=== PATIENT | male | born 1960 | race Caucasian/White ===

== ENCOUNTER 2020-09-15 12:50 | Emergency (ER) | payer OTHER ==
[~2020-09-15] VITALS: Ht 177.8 cm; Wt 72.6 kg
--- NOTE | 2020-09-15 12:59 | Emergency Room Report ---
History of Present Illness General Chief Complaint: Abdominal Pain Source: EMS (Rodrick Garcia MD) Present Illness HPI Disclaimer: Please note that this report is being documented using [employer] technology. This can lead to erroneous entry secondary to incorrect interpretat ion by the dictating instrument. HPI: 60-year-old male history of hypertension, hyperlipidemia, smoker presents for evaluation of chest and abdominal discomfort. Symptoms began 30 minutes ago the patient was riding the bus. He noted a sharp and then cramping pain in the epigastrium that somewhat radiated to the chest. He reported nausea, feeling flushed, diaphoretic and lightheaded. Lasted approximately 15 minutes and resolved. He still feels a cramping in his epigastrium but does not radiate. Denies recent alcohol use. Patient notes a long history of GI discomfort and states every few years he goes to the hospital for "something like this." He has had EGDs, colonoscopies abdominal MRIs all of which have been unremarkable. He had a cardiac echo 2 years ago which was reportedly normal. Has not had a stress test. Currently denies chest pain, shortness of breath, fatigue, pa lpitations, URI symptoms, cough, fever, chills, diarrhea. Nausea has resolved. No vomiting. Patient is currently involved in a COVID-19 experimental trial at the [facility] where he gets most of his care. He has notified the study liters about his hospital visit. 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 EOMI. Cardiovascular: RRR. S1 and S2 normal. No murmur appreciated Resp: Normal work of breathing. No cough, wheezing or crackles appreciated Abdomen: Abdomen is soft, nondistended. Tenderness in the epigastrium. No significant tenderness in the left or right upper quadrant. Negative Taylor's. No tenderness in the lower quadrants. No rebound, no guarding, no peritoneal signs. Skin: Intact. No abrasions, laceration or rash over the exposed skin MSK: Normal tone and bulk. Moving all extremities. No obvious deformity. Neuro: Awake and alert. Mentating appropriately. (Rodrick Garcia MD) Medical Decision Making Diagnostic Impression: Primary Impression: Epigastric pain Additional Impression: Nonspecific chest pain ER Course Well-appearing 60-year-old male presents for evaluation of abdominal and chest discomfort. Differential includes was not limited to angina, palpitations, arrhythmia, GERD, ACS, gastritis, gastroenteritis, pancreatitis, cholecystitis, ulcer among others. EKG is nonischemic. No infiltrates on chest x-ray. Patient feels better after receiving a GI cocktail. (Rodrick Garcia MD) ER Course 60-year-old male here with epigastric abdominal pain. Patient was signed out to me by previous physician. He remained hemodynamically stable and neurovascularly intact in the emergency department. He remained pain-free after receiving a GI cocktail. Troponin was negative. EKG was unremarkable. He was told to come back to the emergency department with worsening symptoms. Dis charged in good condition. EKG: NSR, no ischemia, intervals WNL. No ectopy. Rightward axis. Rate 61 bpm Rhythm strip: patient monitored for arrhythmias - no malignant dysrhythmias, runs of PVCs, nor pauses noted (Jay Temple M.D.) EKG Diagnostic Results Troponin ordered: Yes When was troponin ordered?: Sep 15, 2020 EKG Time: 13:58 Rate: normal Rhythm: NSR ST Segments: no acute changes Other Impression Sinus rhythm, borderline rightward axis, no ST segment changes. Normal intervals (Rodrick Garcia MD) Rhythm Strip Diag. Results Rhythm Strip Time: 13:58 EP Interpretation: yes Rate: 60s Rhythm: NSR, no PVC's, no ectopy (Rodrick Garcia MD) Chest X-Ray Diagnostic Results Chest X-Ray Diagnostic Results : Chest X-Ray Ordered: Yes # of Views/Limited/Complete: 1 View Indication: Chest Pain Interpretation: no consolidation, no effusion, no pneumothorax, no acute cardiopulmonary disease Impression: No acute disease Electronically Signed by: Electronically signed by Dr. Rodrick Garcia MD (Rodrick Garcia MD) Last Vital Signs Date Time Temp Pulse Resp B/P (MAP) Pulse Ox O2 Delivery O2 Flow Rate FiO2 09/15/20 12:47 97.9 68 19 136/55 (82) 98 Room Air (Rodrick Garcia MD) Disposition: HOME, SELF-CARE Condition: Stable Scripts Famotidine* (Pepcid 20mg tablet*) 20 Mg Tablet 20 MG ORAL DAILY for Gerd, #30 TAB 0 Refills Prov: Jay Temple M.D. 09/15/20 Rodrick Garcia MD Sep 15, 2020 12:59 Jay Temple M.D. Sep 15, 2020 14:52
[2020-09-15] MEDS ORDERED: Lidocaine 2% Visc 15ml soln ORAL ONE (13:00)
[2020-09-15] MEDS ORDERED: Mylanta II UD 30ml ORAL ONE (13:00)
[2020-09-15] MEDS ORDERED: Dicyclomine HCl 10mg/5ml oral soln ORAL ONE (13:00)
[2020-09-15 13:05] VITALS: BP 136/55
[2020-09-15 13:43] LABS: BASOPHILS % (AUTO) 1.2 % (0.0-2.0); EOSINOPHILS % (AUTO) 4.1 % (0.0-3.0); HEMATOCRIT 50.3 % (42.0-52.0); HEMOGLOBIN 16.4 G/DL (14.2-18.0); MEAN CORPUSCULAR VOLUME 100 FL (80-99); MONOCYTES % (AUTO) 6.3 % (1.0-10.0); NEUTROPHILS % (AUTO) 75.6 % (45.0-75.0); PLATELET COUNT 221 K/UL (150-450); RED BLOOD COUNT 5.01 M/UL (4.70-6.10); RED CELL DISTRIBUTION WIDTH 12.5 % (11.6-14.8); WHITE BLOOD COUNT 10.8 K/UL (4.8-10.8)
--- NOTE | 2020-09-15 13:45 | NUR ---
ED Nurse Note: Patient was BIBA RA 861 d/t epigastric pain onset 30 mins ago accompanied by n/v, denies diarrhea. Patient presented calm and cooperative stated pain 2/10, AAO x4, VSS at this time.
[2020-09-15 14:18] LABS: CALCIUM 9.4 MG/DL (8.5-10.1); CREATININE 1.4 MG/DL (0.55-1.30); POTASSIUM 4.9 MMOL/L (3.5-5.1)
[2020-09-15 14:28] LABS: ALBUMIN/GLOBULIN RATIO 1.1 (1.0-2.7)
[2020-09-15] MEDS ORDERED: FAMOTIDINE20 MG ORAL (14:49)
[2020-09-15 15:04] VITALS: BP 136/55
--- NOTE | 2020-09-15 15:04 | NUR ---
ER DISCHARGE NOTE: Patient is cleared to be discharged per ERMD, pt is aox4, on room air, with stable vital signs. pt was given dc and prescription instructions, pt was able to verbalize understanding, pt id band and iv site removed without complications. pt is able to ambulate with steady gait. pt took all belongings.
--- NOTE | 2020-09-15 16:03 | Diagnostic Imaging Report ---
Indication: Chest pain Technique: XRAY Chest 1v Comparison: None Findings: Heart size and mediastinal contours within normal. There is no focal airspace consolidation. There is mild scarring and bullous changes in the apices. Findings are more pronounced on the right. No appreciable pneumothorax. No pleural effusion. No acute osseous abnormality. Impression: No radiographic evidence of acute cardiopulmonary disease. Scarring with emphysematous/bullous changes in the apices.
--- NOTE | 2020-09-17 20:41 | Cardiology Report ---
APPROVED REPORT EKG Measurement Heart [id number] <Conclusion> Normal sinus rhythm Rightward axis Nonspecific ST abnormality Abnormal ECG
== END 2020-09-15 15:05 | disposition home or self-care (01) ==
LOC: EDBD 12:50 → EMR 13:39
DX: R10.13 Epigastric pain (principal); R07.9 Chest pain, unspecified; I10 Essential (primary) hypertension; E78.5 Hyperlipidemia, unspecified; F17.200 Nicotine dependence, unspecified, uncomplicated; Z88.5 Allergy status to narcotic agent
CPT/HCPCS: 36415; 71045; 80053; 83690; 83880; 84484; 85025; 93005; 99284